=== PATIENT | male | born 1990 | race Caucasian/White ===

== ENCOUNTER 2017-10-04 17:08 | Emergency (ER) | payer MEDICAID ==
[2017-10-08 15:22] VITALS: BMI 25.8
== END 2017-10-04 20:58 | disposition home or self-care (01) ==
LOC: D.ER 17:08
DX: S62.305A Unspecified fracture of fourth metacarpal bone, left hand, initial encounter for closed fracture (principal); S62.307A Unspecified fracture of fifth metacarpal bone, left hand, initial encounter for closed fracture; W22.01XA Walked into wall, initial encounter; Y93.89 Activity, other specified; Y92.019 Unspecified place in single-family (private) house as the place of occurrence of the external cause; F17.200 Nicotine dependence, unspecified, uncomplicated

== ENCOUNTER 2017-10-08 11:40 | Day surgery (SDC) | payer MEDICAID ==
[~2017-10-08] VITALS: Ht 193 cm; Wt 96.2 kg
--- NOTE | ~2017-10-08 | OP ---
PATIENT NAME: HUNTER RUANO MEDICAL RECORD: [id number] :89 LOCATION:D.OPS ADMISSION DATE: SURGEON: SIVA RODRIGUES MD DATE OF OPERATION: 10/08/2017 PREOPERATIVE DIAGNOSIS: Dislocation of the left ring finger metacarpal base. POSTOPERATIVE DIAGNOSIS: Dislocation of the left ring finger metacarpal base. PROCEDURE: Closed reduction and percutaneous pinning of the left metacarpal base. SURGEON: Siva Rodrigues MD ANESTHESIA: General. INTRAOPERATIVE COMPLICATIONS: None. SUMMARY OF PATHOLOGIC FINDINGS: The patient had a basal dislocation that was originally reduced in the Emergency Room and after the patient again hit his hand, it redislocated showing its inherent instability. OPERATIVE SUMMARY IN DETAIL: After obtaining the appropriate preoperative orthopedic surgical consent as well as anesthetic consultation, evaluation and clearance, the patient was brought to the operating room and placed on the operating table in supine position. After general laryngeal mask airway was administered, tourniquet was placed about the proximal aspect of the left upper extremity. Left upper extremity was then prepped and draped in routine sterile fashion. The arm was elevated and exsanguinated and tourniquet was not used during this case. The ring finger was relocated under fluoroscopic guidance, evaluated in 2 planes and then slight amount of force was used to check its stability and it very easily redislocated. It was then relocated again back into a stable position and then 2 K-wires were placed in cross fashion to pin the carpometacarpal joint back in place. Having completed this, the pins were bent and covered with Jurgan balls. Sterile dressings were applied. The patient was awakened and taken to recovery room in stable condition. All final needle and sponge counts were correct. TRANSINT:[id number] Voice Confirmation ID: [id number] DOCUMENT ID: [id number] SIVA RODRIGUES MD at 1908 CC: [id number] DICTATION DATE: 11/05/17 1329 [employer] ASSEMBLER: 11/05/17 1344 [facility] 10/08/17 [id number] [place] [address]
[2017-10-08] MEDS ORDERED: PERCOCET 7.5/321 TAB PO (15:18)
[2017-10-08] MEDS ORDERED: CELEXA10 MG PO (15:18)
[2017-10-08 15:22] VITALS: BP 132/71; Ht 193 cm; Wt 96.2 kg
== END 2017-10-08 18:10 | disposition home or self-care (01) ==
LOC: D.OPS 11:40
DX: S63.065A Dislocation of metacarpal (bone), proximal end of left hand, initial encounter (principal); F17.200 Nicotine dependence, unspecified, uncomplicated; J45.909 Unspecified asthma, uncomplicated; K21.9 Gastro-esophageal reflux disease without esophagitis; Z01.812 Encounter for preprocedural laboratory examination

== ENCOUNTER 2018-01-13 14:03 | Emergency (ER) | payer MEDICAID ==
[2017-10-08 15:22] VITALS: BMI 25.8
[~2018-01-13 14:03] MED LIST: CELEXA10 MG PO; PERCOCET 7.5/321 TAB PO
== END 2018-01-13 16:26 | disposition home or self-care (01) ==
LOC: D.ER 14:03
DX: M25.462 Effusion, left knee (principal); S83.92XA Sprain of unspecified site of left knee, initial encounter; X58.XXXA Exposure to other specified factors, initial encounter; Y93.89 Activity, other specified; Y92.830 Public park as the place of occurrence of the external cause

== ENCOUNTER → 2018-04-13 10:00 | Outpatient (CLI) | payer MEDICAID ==
[2017-10-08 15:22] VITALS: BMI 25.8
== END | disposition home or self-care (01) ==
LOC: D.MRI 10:00
DX: M25.562 Pain in left knee (principal)